=== PATIENT | female | born 1965 | race Two or more races ===

== ENCOUNTER 2016-06-01 21:23 | Emergency (ER) | payer OTHER ==
[~2016-06-01] VITALS: Ht 152.4 cm; Wt 66.0 kg
[~2016-06-01 21:23] MED LIST: DICL75TA2 PO
[2016-06-01 21:25] VITALS: Ht 152.4 cm; Wt 66.0 kg
--- NOTE | 2016-06-01 22:08 | ERD ---
ER Documentation Chief Complaint Date/Time DATE: 06/01/16 TIME: 22:07 Chief Complaint sore throat x 2 weeks HPI 51 yo female comes in with sore throat, congestion, cough x 2 weeks. Patient states that she has had a dry cough, up until today she had some blood-tinged sputum. Patient reports pleuritic upper back pain each time she takes a deep breath and her outer coughs. She has not had any shortness of breath, difficulty swallowing, voice changes or drooling. She denies recent travel. ROS All systems reviewed and are negative except as per history of present illness. Medications Home Meds Active Scripts Hydrocodone/Acetaminophen ([place] 5-325 Tablet) 1 Each Tablet, 1 TAB PO Q6H Y for PAIN, #7 TAB Prov:ALPESH THOMAS PA-C 06/01/16 Azithromycin* (Zithromax*) 250 Mg Tablet, 250 MG PO .ZPACK DIRECTED, #6 TAB TAKE 500 MG (2 TABS) THE FIRST DAY THEN 250 MG (1 TAB) DAYS 2-5 Prov:ALPESH THOMAS PA-C 06/01/16 Reported Medications Diclofenac Sodium* (Diclofenac Sodium*) 75 Mg Tablet.dr, 1 TAB PO BID 05/16/11 Allergies Allergies: Coded Allergies: ibuprofen (Verified Allergy, 03/23/11) PMhx/Soc History of Surgery: Yes (HYSTERECTOMY 5YR) Anesthesia Reaction: No Hx Miscellaneous Medical Probl: No Hx Alcohol Use: No Hx Substance Use: No Hx Tobacco Use: No Physical Exam Vitals Vital Signs Date Time Temp Pulse Resp B/P Pulse Ox O2 Delivery O2 Flow Rate FiO2 06/01/16 21:25 97.5 78 20 129/71 100 Physical Exam General: Well-developed, well-nourished. The patient appears in no acute distress. HEENT: Head is normocephalic, atraumatic. No scleral icterus. Oropharynx is clear, no exudate, TMs are normal. Neck: Supple. Nontender. Lungs: Clear to auscultation. Normal air movement. Heart: Regular rate and rhythm. S1 and S2 are normal. No murmurs, gallops, or rubs. Abdomen: Nondistended. Extremities: No clubbing or cyanosis. Moving extremities x 4. No weakness. Neurologic: Alert and oriented 3. No focal deficits. Normal speech and gait. Skin: Normal turgor. No rash or lesions. Results 24 hrs PROCEDURE: XR Chest. CLINICAL INDICATION: Cough for 2 weeks. TECHNIQUE: PA and lateral views of the chest were obtained. COMPARISON: 03/23/2011 FINDINGS: The trachea central bronchi are patent. The cardiomediastinal silhouette is within normal limits. Patchy infiltrate within the inferior lingula is present superimposed upon hyperinflation of the lungs, the diaphragm flattened. Calcified granuloma of the left upper lobe is stable compared to the old study. No pleural effusion or pneumothorax is identified. The visualized osseous structures are intact. RPTAT:HJJR IMPRESSION: 1. Small lingular infiltrate concerning for pneumonia superimposed upon chronic obstructive pulmonary disease. Follow-up evaluation after medical therapy is recommended. 2. Stable calcified granuloma of the left upper lobe compared to 03/23/2011. Physician Arcenio Date Time Electronically viewed and signed by Physician Arcenio on 06/01/2016 22:56 Procedures/[facility] The patient is a 51-year-old female who comes in with a cough 2 weeks, chest x- ray shows lingular infiltrate, versus COPD. Patient does not have any history of COPD, respiratory disease or history of smoking. Given the clinical history and presentation of cough 2 weeks patient will be treated for community- acquired pneumonia. She does not have any evidence of active TB disease, blood- tinged sputum is likely due to inflammatory changes from the cough. She is afebrile, no signs of hypoxia or respiratory distress. She is to recheck with her primary care physician, and she has been asked to recheck the chest x-ray in 2 weeks. The patient has a differential diagnosis of a viral upper respiratory infection, bacterial upper respiratory infection, bronchitis, pneumonia, pharyngitis, laryngitis, epiglottitis, croup, pneumonia. Patient has a normal pulmonary examination, clear breath sounds, normal pulse oximetry, with no corrective measures needed at this time. Fluids, rest, antipyretics were encouraged. Departure Diagnosis: Primary Impression: Cough Condition: ALPESH Arenas PA-C Jun 01, 2016 22:08
--- NOTE | 2016-06-01 22:57 | RADRPT ---
PROCEDURE: XR Chest. CLINICAL INDICATION: Cough for 2 weeks. TECHNIQUE: PA and lateral views of the chest were obtained. COMPARISON: 03/23/2011 FINDINGS: The trachea central bronchi are patent. The cardiomediastinal silhouette is within normal limits. Patchy infiltrate within the inferior lingula is present superimposed upon hyperinflation of the rossi gs, the diaphragm flattened. Calcified granuloma of the left upper lobe is stable compared to the ol d study. No pleural effusion or pneumothorax is identified. The visualized osseous structures are i ntact. RPTAT:HJJR IMPRESSION: 1. Small lingular infiltrate concerning for pneumonia superimposed upon chronic obstructive pulmonar y disease. Follow-up evaluation after medical therapy is recommended. 2. Stable calcified granuloma of the left upper lobe compared to 03/23/2011. Physician Arcenio Date Time Electronically viewed and signed by Physician Arcenio on 06/01/2016 22:56 /
[2016-06-01] MEDS ORDERED: AZIT250T94 PO (23:04)
[2016-06-01] MEDS ORDERED: HYDR-906 PO (23:04)
== END 2016-06-01 23:24 | disposition home or self-care (01) ==
LOC: FTE 21:23
DX: R05 Cough (principal)
CPT/HCPCS: 71020; Z7502

== ENCOUNTER 2018-07-17 19:34 | Emergency (ER) | payer OTHER ==
[~2018-07-17] VITALS: Ht 157.5 cm; Wt 58.2 kg
[~2018-07-17 19:34] MED LIST changes: +AZIT250T PO; +HYDR-4011 PO
[2018-07-17 19:45] VITALS: Ht 157.5 cm; Wt 58.2 kg
--- NOTE | 2018-07-17 22:18 | EN ---
Date/Time of Note Date/Time of Note DATE: 07/17/18 TIME: 22:16 HEBER ROSSI NP July 17, 2018 22:18
[2018-07-17] MEDS ORDERED: AMOXICILLIN/CLAV 875 MG TAB PO ONE (23:30)
[2018-07-17] MEDS ORDERED: GUAIFENESIN/DM 5ML CUP PO ONE (23:30)
[2018-07-17] MEDS ORDERED: GUAIFENESIN 20 MG/ML 5ML CUP PO ONE (23:30)
[2018-07-17] MEDS ORDERED: PROMETHAZINE/CODEINE 5ML CUP PO ONE (23:30)
[2018-07-17] MEDS ORDERED: traMADol 50 MG TAB PO ONE (23:30)
[2018-07-17] MEDS ORDERED: DEXAMETHASONE 10 MG/ML 1 ML INJ IM ONE (23:30)
[2018-07-17] MEDS ORDERED: GUAI118L22 PO (23:41)
[2018-07-17] MEDS ORDERED: AMOX1TAB10 PO (23:41)
[2018-07-17] MEDS ORDERED: TRAM50TA2 PO (23:41)
[2018-07-17] MEDS ORDERED: CETI10TA19 PO (23:41)
[2018-07-17 23:59] VITALS: BP 129/76; PULSE 70; RESP 17
--- NOTE | 2018-07-18 00:34 | ERD ---
ER Documentation Chief Complaint Chief Complaint C/O LT SIDED MCCARTY W/ EYE PRESSURE, LT EAR PAIN, STATES LOTS OF PHLEGM HPI History of Present Illness: The patient being brought in today by family members. 53-year-old female who denies past medical history coming in today with complaint of left-sided headache and eye pressure that started at 3 AM. Associated symptoms include left ear pain. Patient also reporting productive cough with yellow/green phlegm, ear pressure that is been present for approximately 7-10 days and worsening. At home pharmacological/nonpharmacological treatment for symptoms: Denies Denies social concerns; Denies recent foreign travel ROS All systems reviewed and are negative except as per history of present illness. Medications Home Meds Active Scripts Tramadol HCl (Tramadol HCl) 50 Mg Tablet, 50 MG PO Q12 PRN for PAIN, #10 TAB Prov:HEBER ROSSI NP 07/17/18 Cetirizine Hcl* (Cetirizine Hcl*) 10 Mg Tablet, 10 MG PO DAILY for ALLERGIES, COUGH, MUCUS, #30 TAB Prov:HEBER ROSSI NP 07/17/18 Guaifenesin/Codeine Phosphate (CHERATUSSIN AC SYRUP) 118 Ml Liquid, 10 ML PO Q8 PRN for COUGH/PHYLM/CHEST CONGESTION, #118 ML Prov:HEBER ROSSI NP 07/17/18 Amoxicillin/Potassium Clav (Amox-Clav 875-125 mg Tablet) 875-125 mg Tab, 1 TAB PO BID for SINUS INFECTION for 10 Days, #20 TAB Prov:HEBER ROSSI NP 07/17/18 Hydrocodone/Acetaminophen ([place] 5-325 Tablet) 1 Each Tablet, 1 TAB PO Q6H PRN for PAIN, #7 TAB Prov:ALPESH THOMAS PA-C 06/01/16 Azithromycin* (Zithromax*) 250 Mg Tablet, 250 MG PO .ZPACK DIRECTED, #6 TAB TAKE 500 MG (2 TABS) THE FIRST DAY THEN 250 MG (1 TAB) DAYS 2-5 Prov:ALPESH THOMAS PA-C 06/01/16 Reported Medications Diclofenac Sodium* (Diclofenac Sodium*) 75 Mg Tablet.dr, 1 TAB PO BID 05/16/11 Allergies Allergies: Coded Allergies: acetaminophen (Verified Allergy, Mild, RASH, 07/17/18) ibuprofen (Verified Allergy, Unknown, 07/17/18) PMhx/Soc History of Surgery: Yes (HYSTERECTOMY, CSECTION, LEFT BREAST BX) Anesthesia Reaction: No Hx Neurological Disorder: No Hx Respiratory Disorders: No Hx Cardiac Disorders: No Hx Psychiatric Problems: No Hx Miscellaneous Medical Probl: No Hx Alcohol Use: No Hx Substance Use: No Hx Tobacco Use: No Smoking Status: Never smoker FmHx Family History: No diabetes, No coronary disease Physical Exam Vitals Vital Signs Date Temp Pulse Resp B/P (MAP) Pulse Ox O2 O2 Flow FiO2 Time Delivery Rate 07/17/18 97.4 70 17 129/76 97 Room Air 23:59 (93) 07/17/18 97.3 73 19 137/63 100 19:45 (87) Physical Exam Const: No acute distress Head: Atraumatic, tenderness to palpation over frontal maxillary sinuses Eyes: Normal Conjunctiva ENT: Normal External Ears, and Mouth. No erythema noted to bilateral tympanic membranes, no perforation, no bulging. Nasal turbinates swollen, nasal mucosa with erythema. Neck: Full range of motion. No meningismus. Resp: Clear to auscultation bilaterally Cardio: Regular rate and rhythm, no murmurs Abd: Soft, non tender, non distended. Normal bowel sounds Skin: No petechiae or rashes Back: No midline or flank tenderness Ext: No cyanosis, or edema Neur: Awake and alert Psych: Normal Mood and Affect Results 24 hrs Current Medications Medications Dose Sig/Belkys Start Time Status Last (Trade) Ordered Route PRN Stop Time Admin Dose Reason Admin 10 mg ONCE ONCE 07/17/18 DC 07/17/18 Dexamethasone IM 23:30 07/17/18 23:28 (Decadron) 23:31 Tramadol 50 mg ONCE ONCE 07/17/18 DC 07/17/18 HCl PO 23:30 07/17/18 23:29 (Ultram) 23:31 Promethazine 10 ml ONCE ONCE 07/17/18 DC 07/17/18 HCl/ PO 23:30 07/17/18 23:28 Codeine 23:31 (Phenergan/ Codeine) 10 ml ONCE ONCE 07/17/18 DC Guaifenesin/ PO 23:30 07/17/18 Dextromethorp 23:30 bravo (Robitussin Dm Liquid Cup) Guaifenesin 200 mg ONCE ONCE 07/17/18 DC 07/17/18 (Robitussin PO 23:30 07/17/18 23:28 Liquid Cup) 23:31 875 mg ONCE ONCE 07/17/18 DC 07/17/18 Amoxicillin/ PO 23:30 07/17/18 23:36 Clavulanate 23:31 Potassium (Augmentin) Procedures/MDM ED course includes a thorough examination and history. Medications: Promethazine/codeine, dexamethasone, tramadol, penicillin Imaging: Labs: Low suspicion for life-threatening medical emergency. Low suspicion for HEENT medical emergency requires hospitalization or immediate surgical intervention. LOW Suspicion for neurological emergency. Otherwise healthy patient presenting with constellation of symptoms likely representing acute sinusitis as characterized by history, physical exam findings. Patient reassessment: Patient updated on plan of care. Will receive first dose of antibiotics before discharge. Patient hemodynamically stable. No respiratory distress, otherwise relatively well appearing and nontoxic. Disposition given. Patient educated on diagnoses, prescriptions, follow-up care, return precautions. Strict return precautions given for worsening condition; questions answered discharge. Disposition for discharge with followup in 2 days with PCP/clinic. Departure Diagnosis: Primary Impression: Sinusitis Sinusitis location: unspecified location Chronicity: acute Recurrence: not specified as recurrent Qualified Codes: J01.90 - Acute sinusitis, unspecified Additional Impression: Cough productive of purulent sputum Condition: Stable Patient Instructions: Sinusitis, Abx Tx Referrals: [facility] YOU HAVE RECEIVED A MEDICAL SCREENING EXAM AND THE RESULTS INDICATE THAT YOU DO NOT HAVE A CONDITION THAT REQUIRES URGENT TREATMENT IN THE EMERGENCY DEPARTMENT. FURTHER EVALUATION AND TREATMENT OF YOUR CONDITION CAN WAIT UNTIL YOU ARE SEEN IN YOUR DOCTORS OFFICE WITHIN THE NEXT 1-2 DAYS. IT IS YOUR RESPONSIBILITY TO MAKE AN APPOINTMENT FOR FOLOW-UP CARE. IF YOU HAVE A PRIMARY DOCTOR --you should call your primary doctor and schedule an appointment IF YOU DO NOT HAVE A PRIMARY DOCTOR YOU CAN CALL OUR PHYSICIAN REFERRAL HOTLINE AT IF YOU CAN NOT AFFORD TO SEE A PHYSICIAN YOU CAN CHOSE FROM THE FOLLOWING [facility] [address] [facility] [address] [facility] [address] [facility] [address] [facility]. [facility] [address] [facility]. [facility] [address] [facility] YOU HAVE RECEIVED A MEDICAL SCREENING EXAM AND THE RESULTS INDICATE THAT YOU DO NOT HAVE A CONDITION THAT REQUIRES URGENT TREATMENT IN THE EMERGENCY DEPARTMENT. FURTHER EVALUATION AND TREATMENT OF YOUR CONDITION CAN WAIT UNTIL YOU ARE SEEN IN YOUR DOCTORS OFFICE WITHIN THE NEXT 1-2 DAYS. IT IS YOUR RESPONSIBILITY TO MAKE AN APPOINTMENT FOR FOLOW-UP CARE. IF YOU HAVE A PRIMARY DOCTOR --you should call your primary doctor and schedule and appointment IF YOU DO NOT HAVE A PRIMARY DOCTOR YOU CAN CALL OUR PHYSICIAN REFERRAL HOTLINE AT . IF YOU CAN NOT AFFORD TO SEE A PHYSICIAN YOU CAN CHOSE FROM THE FOLLOWING [facility] INSTITUTIONS: [facility] [address] [place] [address] [facility] [address] [place] [address] [facility] [address] [place] [address] Additional Instructions: Muchas tay por permitirnos participar en burton cuidado. Burton flores y seguridad es nuestra principal prioridad en [facility]. Es importante leer todas las instrucciones de armando y la educacin que se proporcionan en burton paquete de armando. Llame a burton mdico de atencin primaria MAANA para elvis ean kaiden los prximos 2 a 4 huerta y lleve toda la informacin y los medicamentos recetados. Llene las recetas y siga exactamente las instrucciones de la etiqueta. -Augmentina es un antibitico; tome gissell medicamento shawna se indica en burton receta. Debe completar todo el curso de tratamiento que figura en [place] receta. [place] es muy importante porque se necesitan varios huerta para eliminar las bacterias que causan la infeccin. -Tramadol es un analgsico opiceo; tome gissell medicamento segn sea necesario para el dolor moderado a intenso. No se opera maquinaria pesada mientras se rachael gissell medicamento. Puede causar somnolencia. -Cetirizina shawna antihistamnico que no debe causar somnolencia; tome gissell medicamento todos los huerta para los sntomas de alergia / tos / secrecin nasal. -Cheratussin (guaifenesin / codeine) es un jarabe para la tos que tambin ayuda a adelgazar la flema / moco. Gissell medicamento puede causar somnolencia. No opere maquinaria pesada despus de dinh gissell medicamento. Si los sntomas empeoran y burton proveedor no est disponible, regrese inmediatamente al Departamento de Emergencias. ---- Thank you very much for allowing us to participate in your care. Your health and safety is our top priority at [facility]. It is important to read all discharge instructions and education provided in your discharge packet. Call your primary care doctor TOMORROW for an appointment during the next 2-4 days and bring all the information and medications prescribed. Have prescriptions filled and follow precisely the directions on the label. -Augmentin is an antibiotic; take this medication as listed on your prescription. You must complete the entire course of treatment that is listed on your prescription this is very important because it takes a certain number of days to kill the bacteria that is causing the infection. -Tramadol is an opiate pain medication; take this medication as needed for moderate to severe pain. No operating of heavy machinery while taking this medication. It may cause drowsiness. -Cetirizine as an antihistamine that should not cause drowsiness; take this medication every day for allergy-like symptoms/cough/runny nose. -Cheratussin (guaifenesin/codeine) is a cough syrup that will also help with thinning phlegm/mucus. This medication may cause drowsiness. Do not operate heavy machinery after taking this medication. If the symptoms get worse and your provider is unavailable, return to the Emergency Department immediately. HEBER ORSSI NP July 18, 2018 00:34
== END 2018-07-17 23:59 | disposition home or self-care (01) ==
LOC: FTE 19:34
DX: J01.90 Acute sinusitis, unspecified (principal)
CPT/HCPCS: 96372; J1100; Z7502; Z7610